=== PATIENT | male | born 1965 | race Caucasian/White ===

== ENCOUNTER 2016-09-24 11:31 | Emergency (ER) | payer OTHER ==
[~2016-09-24] VITALS: Ht 188 cm; Wt 94.3 kg
[~2016-09-24 11:31] MED LIST: IBUP-2213 PO
--- NOTE | 2016-09-24 11:31 | NUR ---
Patient was BIBA at this time.
[2016-09-24 11:40] VITALS: BP 172/120
--- NOTE | 2016-09-24 11:54 | NUR ---
Patient to bed 07 via gurney per EMS.
--- NOTE | 2016-09-24 12:05 | NUR ---
51/M biba from home for evaluation of dizziness for the past two days. Patient reports dizziness x3 months. Patient denies any syncope. Patient is very fatigued, is cooperative but states "My arms just want to go to sleep." Pt c/o weakness. Pt placed on the monitor, pulse oximetry and blood pressure monitoring. 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 Radial and pedal pulses +2 strong and regular. Lungs clear bilaterally. Abd soft, non tender, active bowel sounds x4 quadrants. VSS. hx of HTN but not on medication
--- NOTE | 2016-09-24 12:18 | NUR ---
Dr. Moffett evaluating patient at bedside.
--- NOTE | 2016-09-24 12:34 | NUR ---
Patient going to CT via arron stanley.
--- NOTE | 2016-09-24 12:45 | NUR ---
[facility]
--- NOTE | 2016-09-24 12:48 | NUR ---
Patient ambulated to restroom with steady gait.
[2016-09-24 12:49] LABS: BASOPHILS # (AUTO) 0.2 K/uL (0.00-0.22); BASOPHILS % (AUTO) 2.6 % (0.0-2.0); EOSINOPHILS # (AUTO) 0.1 K/uL (0-0.4); EOSINOPHILS % (AUTO) 2.1 % (0.0-4.0); HEMATOCRIT 50.3 % (36-52); HEMOGLOBIN 16.5 g/dL (12.0-18.0); LYMPHOCYTES # (AUTO) 0.9 K/uL (2.0-11.5); LYMPHOCYTES % (AUTO) 13.2 % (20.5-51.1); MEAN CORPUSCULAR HEMOGLOBIN 28 pg (27-31); MEAN CORPUSCULAR HGB CONC 33 g/dL (33-37); MEAN CORPUSCULAR VOLUME 86 fL (80-94); MONOCYTES # (AUTO) 0.6 K/uL (0.8-1.0); MONOCYTES % (AUTO) 8.7 % (1.7-9.3); NEUTROPHILS # (AUTO) 5.1 K/uL (1.8-7.7); NEUTROPHILS % (AUTO) 73.4 % (42.2-75.2); PLATELET COUNT (AUTO) 137 K/uL (140-450); RED BLOOD CELL COUNT(AUTO) 5.84 MIL/uL (4.20-6.10); RED CELL DISTRIBUTION WIDTH 11.6 % (11.6-13.7); WHITE BLOOD COUNT (AUTO) 6.9 K/uL (4.8-10.8)
[2016-09-24] MEDS ORDERED: MECLIZINE 25 MG TAB PO ONE (12:50)
[2016-09-24] MEDS ORDERED: DIAZEPAM 5 MG TAB PO ONE (12:50)
[2016-09-24] MEDS ORDERED: NACL 0.9% 500 ML IV ONE (12:50)
[2016-09-24 13:10] LABS: INR 1.1 (0.8-1.2); PARTIAL THROMBOPLASTIN TIME 31.9 secs (22-35.6); PROTHROMBIN TIME 10.8 secs (10.8-13.4)
[2016-09-24 13:11] LABS: ALBUMIN 3.7 g/dL (3.4-5.0); ANION GAP 11.4 (8-16); CALCIUM 8.8 mg/dL (8.5-10.1); CARBON DIOXIDE 27.2 mmol/L (21-32); CREATININE 1.2 mg/dL (0.6-1.3); POTASSIUM 3.6 mmol/L (3.5-5.1); TOTAL BILIRUBIN 0.6 mg/dL (0.0-1.0); TOTAL PROTEIN, SERUM 6.6 g/dL (6.4-8.2)
--- NOTE | 2016-09-24 13:19 | NUR ---
Patient appears to be resting comfortably in bed. Vital Signs within normal limits. Respirations even and unlabored. Patient states "I just want to sleep." No distress noted.
--- NOTE | 2016-09-24 14:05 | NUR ---
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 Pt made aware. Pt is resting comfortably at this time. VSS. No signs of distress. Pt states "I just want to sleep."
--- NOTE | 2016-09-24 14:24 | NUR ---
Carlota quintana in ED - 09/24/16 at 1426 by [facility] IV removed, catheter intact and site benign. Applied folded 4x4 gauze and tape to stop bleeding.
--- NOTE | 2016-09-24 15:00 | NUR ---
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
--- NOTE | 2016-09-24 15:01 | NUR ---
IV removed, catheter intact and site benign. Applied folded 4x4 gauze and tape to stop bleeding.
[2016-09-24 15:08] VITALS: BP 134/84
--- NOTE | 2016-09-24 15:09 | NUR ---
Patient discharged with v/s stable. Written and verbal after care instructions given and explained. Patient alert, oriented and verbalized understanding of instructions. Ambulatory with steady gait. All questions addressed prior to discharge. ID band removed. Patient advised to follow up with PMD. Rx of ANTIVERT given. Patient educated on indication of medication including possible reaction and side effects. Opportunity to ask questions provided and answered.
== END 2016-09-24 15:00 | disposition home or self-care (01) ==
LOC: MED 11:32
DX: I10 Essential (primary) hypertension (principal); Z87.442 Personal history of urinary calculi
CPT/HCPCS: 36415; 70450; 71010; 80053; 83880; 84484; 85025; 85610; 85730; 93005; 99285; J7030; J8597; Q0092

== ENCOUNTER 2016-10-21 18:38 | Emergency (ER) | payer OTHER ==
[~2016-10-21] VITALS: Ht 188 cm; Wt 98.9 kg
--- NOTE | 2016-10-21 18:38 | NUR ---
Patient was BIBA and taken to bed 08 via gurney per EMS.
[2016-10-21 18:40] VITALS: BP 163/106
--- NOTE | 2016-10-21 18:45 | NUR ---
PT BIBA FOR EVALUATION OF DIZZINESS SINCE LAST NOC. HX VERTIGO, HTN. DENIES N/V/D; SKIN IS PINK/WARM/DRY; AAOX4 WITH EVEN AND STEADY GAIT; LUNGS CLEAR BL; HR EVEN AND REGULAR; PT DENIES ANY FEVER, CP, SOB, OR COUGH AT THIS TIME; PATIENT STATES PAIN OF 0/10 AT THIS TIME; VSS; PATIENT POSITIONED FOR COMFORT; HOB ELEVATED; BEDRAILS UP X2; BED DOWN. ER MD MADE AWARE OF PT STATUS.
--- NOTE | 2016-10-21 19:27 | NUR ---
REPORT GIVEN TO SAUD VIDAL
[2016-10-21] MEDS ORDERED: METOCLOPRAMIDE 10 MG/2 ML INJ VIAL IVP ONE (19:30)
[2016-10-21] MEDS ORDERED: NACL 0.9% 1,000 ML IV ONE (19:30)
[2016-10-21] MEDS ORDERED: MECLIZINE 25 MG TAB PO ONE (19:45)
[2016-10-21 20:43] VITALS: BP 143/83
--- NOTE | 2016-10-21 20:43 | NUR ---
Patient discharged with v/s stable. Written and verbal after care instructions given and explained. Patient alert, oriented and verbalized understanding of instructions. Ambulatory with steady gait. All questions addressed prior to discharge. ID band removed. Patient advised to follow up with PMD OR RETURN BACK TO ER IF CONDITION WORSENS. Rx of MECLIZINE given. Patient educated on indication of medication including possible reaction and side effects. Opportunity to ask questions provided and answered. [facility] CALLED FOR PT.
--- NOTE | 2016-10-21 21:00 | NUR ---
PT PICKED UP BY STEPHENIE ZENDEJAS.
== END 2016-10-21 20:43 | disposition home or self-care (01) ==
LOC: MED 18:38
DX: R42 Dizziness and giddiness (principal); I10 Essential (primary) hypertension; Z87.442 Personal history of urinary calculi
CPT/HCPCS: 93005; 96361; 96374; 99284; J2765; J7030; J8597

== ENCOUNTER 2018-03-22 09:01 | Emergency (ER) | payer OTHER ==
[~2018-03-22] VITALS: Ht 182.9 cm; Wt 95.7 kg
[2018-03-22 09:23] VITALS: BP 157/90
--- NOTE | 2018-03-22 09:30 | NUR ---
BIB . PATIENT PRESENTS TO ED WITH RIGHT HIP PAIN THAT RADIATES DOWN LEG TO TOES. PT STATES IT GOT WORSE STARTING ON THURSDAY LAST WEEK. DENIES N/V/D; SKIN IS PINK/WARM/DRY; AAOX4 WITH EVEN AND STEADY GAIT; LUNGS CLEAR BL; HR EVEN AND REGULAR; PT DENIES ANY FEVER, CP, SOB, OR COUGH AT THIS TIME; PATIENT STATES PAIN OF 10/10 AT THIS TIME; VSS; PATIENT POSITIONED FOR COMFORT; HOB ELEVATED; BEDRAILS UP X2; BED DOWN. ER MD MADE AWARE OF PT STATUS.
--- NOTE | 2018-03-22 10:00 | NUR ---
PATIENT EDUCATED ON PROPER USE OF CRUTCHES.
[2018-03-22 10:10] VITALS: BP 135/75
--- NOTE | 2018-03-22 10:10 | NUR ---
Patient discharged with v/s stable. Written and verbal after care instructions given and explained. Patient alert, oriented and verbalized understanding of instructions. Ambulatory with CRUTCHES. All questions addressed prior to discharge. ID band removed. Patient advised to follow up with PMD. Rx TRAMADOL of given. Patient educated on indication of medication including possible reaction and side effects. Opportunity to ask questions provided and answered.
== END 2018-03-22 10:10 | disposition home or self-care (01) ==
LOC: MED 09:01
DX: M54.31 Sciatica, right side (principal); I10 Essential (primary) hypertension; Z79.1 Long term (current) use of non-steroidal anti-inflammatories (NSAID)
CPT/HCPCS: 99283

== ENCOUNTER 2018-06-27 20:49 | Emergency (ER) | payer OTHER ==
[~2018-06-27] VITALS: Ht 188 cm; Wt 95.7 kg
[2018-06-27 20:57] VITALS: BP 153/107
--- NOTE | 2018-06-27 21:01 | NUR ---
PT AMBULATED TO BED 9 WITH VSS.
--- NOTE | 2018-06-27 21:14 | NUR ---
PT BIB SELF C/O R FINGER PAIN X1 WEEK AND R FLANK PAIN X3 DAYS. PT REPORTS STICKING SECOND FINGER ON R HAND WHILE CHANGING A TIRE LAST WEEK AND FIRST NOTICED SWELLING AND DECREASED ROM THURSDAY WITH NUMBING PAIN AT 10/10. EDEMA AND EYTHEMA PRESENT ON R SECOND FINGER. PT ALSO REPORTS STABING R FLANK PAIN WITH BURNING URINATION AND HESITANCY. PT DENIES N/V AND FEVER. PT HAS HISTORY OF KIDNEY STONES. ER MD TO SEE PT. SIDE RAIL UP X1, HOB ELEVATED, BED IN LOWEST POSITION. WILL CONTINUE TO MONITOR. MEDHX: KIDNEY STONES, HTN RX: NONE
[2018-06-27] MEDS ORDERED: IBUPROFEN 800 MG TAB PO ONE (21:20)
--- NOTE | 2018-06-27 21:40 | NUR ---
PT AT CT AT THIS TIME.
--- NOTE | 2018-06-27 21:52 | NUR ---
PT RETURNED FROM CT AT THIS TIME.
[2018-06-27 22:18] VITALS: BP 148/98
--- NOTE | 2018-06-27 22:18 | NUR ---
Patient discharged with v/s stable. Written and verbal after care instructions given and explained. Patient alert, oriented and verbalized understanding of instructions. Ambulatory with steady gait. All questions addressed prior to discharge. ID band removed. Patient advised to follow up with PMD. Rx of flomax, ibuprofen, and given. Patient educated on indication of medication including keflex reaction and side effects. Opportunity to ask questions provided and answered.
[2018-06-27 22:24] LABS: APPEARANCE,URINE CLEAR (CLEAR); BILIRUBIN,URINE NEGATIVE (NEGATIVE); BLOOD, URINE 1+ (NEGATIVE); COLOR,URINE YELLOW (YELLOW); LEUKOCYTE ESTERASE ,URINE NEGATIVE (NEGATIVE); NITRITE, URINE NEGATIVE (NEGATIVE); UGLUCOSE NEGATIVE (NEGATIVE)
[2018-06-27 22:39] LABS: HYALINE CASTS, URINE 0-10 /LPF (None Seen); RBC,URINE 3-10 (FEW) /HPF (0-5); WBC,URINE 0-5 (RARE) /HPF (0-5)
== END 2018-06-27 22:18 | disposition home or self-care (01) ==
LOC: MED 20:49
DX: L03.011 Cellulitis of right finger (principal); N20.0 Calculus of kidney; I10 Essential (primary) hypertension; Z87.442 Personal history of urinary calculi; Z79.899 Other long term (current) drug therapy
CPT/HCPCS: 81001; 99284

== ENCOUNTER 2018-07-21 21:31 | Inpatient (IN) | payer OTHER ==
[~2018-07-21] VITALS: Ht 188 cm; Wt 99.3 kg
[2018-07-21 21:34] VITALS: BP 166/102
[2018-07-21 22:01] LABS: BASOPHILS # (AUTO) 0.1 K/uL (0.00-0.22); BASOPHILS % (AUTO) 0.8 % (0.0-2.0); EOSINOPHILS # (AUTO) 0.1 K/uL (0-0.4); EOSINOPHILS % (AUTO) 1.2 % (0.0-4.0); HEMOGLOBIN 16.8 g/dL (12.0-18.0); LYMPHOCYTES # (AUTO) 1.6 K/uL (2.0-11.5); LYMPHOCYTES % (AUTO) 19.3 % (20.5-51.1); MEAN CORPUSCULAR HEMOGLOBIN 28 pg (27-31); MEAN CORPUSCULAR HGB CONC 33 g/dL (33-37); MEAN CORPUSCULAR VOLUME 85.5 fL (80-94); MONOCYTES # (AUTO) 0.7 K/uL (0.8-1.0); MONOCYTES % (AUTO) 8.1 % (1.7-9.3); NEUTROPHILS # (AUTO) 5.8 K/uL (1.8-7.7); NEUTROPHILS % (AUTO) 70.6 % (42.2-75.2); PLATELET COUNT (AUTO) 133 K/uL (140-450); RED BLOOD CELL COUNT(AUTO) 5.97 MIL/uL (4.20-6.10); RED CELL DISTRIBUTION WIDTH 13.1 % (11.6-13.7); WHITE BLOOD COUNT (AUTO) 8.2 K/uL (4.8-10.8)
[2018-07-21 22:06] LABS: BILIRUBIN,URINE NEGATIVE (NEGATIVE); BLOOD, URINE NEGATIVE (NEGATIVE); COLOR,URINE YELLOW (YELLOW); LEUKOCYTE ESTERASE ,URINE NEGATIVE (NEGATIVE); NITRITE, URINE NEGATIVE (NEGATIVE); PH,URINE 6.5 (5.0-9.0); UGLUCOSE NEGATIVE (NEGATIVE)
[2018-07-21 22:11] LABS: APPEARANCE,URINE CLEAR (CLEAR)
[2018-07-21 22:12] LABS: ANION GAP 9.9 (8-16); CARBON DIOXIDE 29.6 mmol/L (21-32); CREATININE 1.6 mg/dL (0.7-1.3); POTASSIUM 3.5 mmol/L (3.5-5.1)
[2018-07-21 22:17] LABS: ALBUMIN 4.1 g/dL (3.4-5.0); TOTAL BILIRUBIN 0.5 mg/dL (0.0-1.0)
--- NOTE | 2018-07-21 22:39 | NUR ---
PT PRESENTS TO ED WITH LEFT FLANK PAIN X1 DAY. NON-RADIATING, THROBBING, SEVERE ACHE. 01/01. HX KIDNEY STONES. A&OX4. NO ABD TENDERNESS. VSS. POSITIONED IN BED FOR COMFORT. ER MD AWARE. CONTINUE TO MONITOR.
--- NOTE | 2018-07-21 22:39 | NUR ---
PT TAKEN TO BED 7
--- NOTE | 2018-07-21 22:46 | NUR ---
Dr. Bhakta evaluating patient at bedside.
[2018-07-21] MEDS ORDERED: NACL 0.9% 1,000 ML IV ONE (22:50)
[2018-07-21] MEDS ORDERED: MORPHINE SULFATE 4 MG/ML SYR IVP ONE ×2 (22:50→23:55)
[2018-07-22] MEDS ORDERED: fentaNYL 0.05 MG/ML VIAL IVP ONE (00:55)
[2018-07-22] MEDS ORDERED: TAMSULOSIN 0.4 MG CAP ONE (00:59)
[2018-07-22] MEDS ORDERED: ACETAMINOPHEN 325 MG TAB PO PRN (01:45)
[2018-07-22] MEDS ORDERED: ONDANSETRON 4 MG/2 ML VIAL IVP PRN (01:45)
[2018-07-22] MEDS ORDERED: HYDROcodone/APAP 5/325 MG 1 TAB TAB PO PRN (01:45)
[2018-07-22 02:05] VITALS: BP 157/99
--- NOTE | 2018-07-22 02:05 | NUR ---
RECEIVED PT FROM ER NURSE RENE-SAUD AT BEDSIDE. PT ARRIVED VIA WHEELCHAIR AND WAS ABLE TO AMBULATE WITHOUT ASSISTANCE TO THE BED. AOX4, ON ROOM AIR WITH LEFT AC #20G. VITAL SIGNS TAKEN AND MRSA SWAB COLLECTED. DISCUSSED PLAN OF CARE AND PT VERBALIZED UNDERSTANDING. NO S/S OF RESPIRATORY DISTRESS OR DISCOMFORT NOTED AT THIS TIME. ORIENTED TO ROOM, CALL LIGHT AND BED. BED IN LOWEST POSITION, BED BREAKS ON, BOTH SIDE RAILS UP. BEDSIDE TABLE AND CALL LIGHT ARE WITHIN REACH. WILL CONTINUE TO MONITOR.
--- NOTE | 2018-07-22 02:10 | NUR ---
REPORT GIVEN AND CARE TRANSFERED TO TEODORA RN ROOM 124A. TRANSFERED VIA WHEEL CHAIR [facility] VSS.
[2018-07-22] MEDS: NACL 0.9% 1,000 ML IV SCH ×3 (02:38→21:47)
[2018-07-22] MEDS: MORPHINE SULFATE 4 MG/ML SYR IVP PRN ×4 (04:13→18:21)
--- NOTE | 2018-07-22 04:13 | NUR ---
PT C/O PAIN 10/10 LEFT LOWER FLANK PAIN. MORPHINE GIVEN AND TOLERATED WELL. NO S/S OF RESPIRATORY DISTRESS OR DISCOMFORT NOTED AT THIS TIME. WILL CONTINUE TO MONITOR.
--- NOTE | 2018-07-22 06:00 | NUR ---
PT CONTINUES TO SLEEP IN BED. NO S/S OF RESPIRATORY DISTRESS OR DISCOMFORT NOTED AT THIS TIME. WILL CONTINUE TO MONITOR.
--- NOTE | 2018-07-22 07:14 | NUR ---
REPORT GIVEN TO DAY SHIFT NURSE INDIO-RN FOR CONTINUITY OF CARE.
--- NOTE | 2018-07-22 07:15 | NUR ---
RECEIVED REPORT FROM BUSINESS SUPERVISOR NURSE. PATIENT WAS THROWING UP AT THE MOMENT. PT WAS ALSO COMPLAINING OF PAIN. ONCE PT WAS FINISHED W THROWING UP. GAVE PT PAIN MEDICATION. PT WAS LAYING IN BED. ALL SAFETY MEASURES WERE IN PLACE. TIPTON IN REACH.
--- NOTE | 2018-07-22 07:54 | NUR ---
PATIENT HAS BEEN SCREENED AND CATEGORIZED MODERATE NUTRITION RISK. PATIENT WILL BE SEEN WITHIN 3-5 DAYS OF ADMISSION. 07/24/18[address]
[2018-07-22 08:00] VITALS: BP 159/93
--- NOTE | 2018-07-22 08:08 | NUR ---
Morphine 4mg IVP administered to pt. No morphine wasted from Pyxis. Pharmacist notified.
[2018-07-22] MEDS ORDERED: TAMSULOSIN 0.4 MG CAP PO SCH (08:30)
[2018-07-22] MEDS: TAMSULOSIN 0.4 MG CAP PO SCH (08:49)
[2018-07-22] MEDS ORDERED: ENOXAPARIN 40 MG/0.4 ML SYR SUBQ SCH (09:00)
--- NOTE | 2018-07-22 10:55 | NUR ---
CM NOTE I ATTEMPTED TO MAKE AN OUTPATIENT FOLLOW UP APPOINTMENT FOR THE PATIENT WITH PATIENT'S PCP DR. [facility]. PER NILAM BECERRA OF [facility] PH# [phone], THEY ARE A WALK IN CLIN[facility] AND THEY DO NOT DO APPOINTMENTS. PER NILAM BECERRA, THE CLINIC HOURS ARE: MONDAYS-FRIDAYS 8:00 AM-8:00 PM, SATURDAYS 8:30 AM-5:00 PM, SUNDAYS 9:00 AM-4:00 PM AND THE ADDRESS TO THE CLINIC IS [address] [place] [address]. I EXPLAINED TO THE PATIENT THAT HIS PCP'S CLINIC DOESN'T DO APPOINTMENTS BUT I EMPHASIZED TO HIM THE IMPORTANCE OF FOLLOWING UP WITH HIS PCP POST DISCHARGE AND I GAVE HIM A COPY OF HIS PCP'S CLINIC HOURS AND ADDRESS.
--- NOTE | 2018-07-22 11:00 | NUR ---
Urinal with 300 ml urine. Urine strained, urinal cleaned & place within pt's reach. Pt denies any pain at this time. Left ac IV intact with ongoing NS @ 100ml/hr. Call light within reach.
--- NOTE | 2018-07-22 14:28 | NUR ---
CM NOTE RECEIVED VM FROM INDIO VILLAVICENCIO THAT DR. Paras MARCELINO IS REQUESTING FOR AN AUTHORIZATION FROM PATIENT'S [facility]IGNED [facility] FOR HIM TO SEE THE PATIENT AT THE HOSPITAL. PER DR. MARCELINO, THE CODES FOR HOSPITAL CONSULT [id number] AND FOR HOSPITAL VISIT [phone]. I INFORMED ALPHA CARE CM LEWIS OF DR. MARCELINO'S REQUEST AND PER SANFORD SAUCEDO OF [facility]# [phone] EXT [phone], FOR DR. MARCELINO THE AUTH# [id number]. INDIO VILLAVICENCIO AWARE.
--- NOTE | 2018-07-22 14:30 | NUR ---
Received call from [facility] medical case manager re: Dr. Gonzalez's request for authorization from [employer]. Left voicemail to Dr. Gonzalez's office.
[2018-07-22 16:00] VITALS: BP 149/95
--- NOTE | 2018-07-22 16:00 | NUR ---
Call light not working in pt's room. biology specimen technician notified to contact maintenance. Call zurita provided at bedside. Pt able to demonstrate proper use of call zurita.
--- NOTE | 2018-07-22 19:27 | NUR ---
Report given to pm nurse Neema.
--- NOTE | 2018-07-22 19:28 | NUR ---
RECEIVED BEDSIDE REPORT FROM DAY SHIFT NURSE INDIO RN, PT STABLE, NO DISTRESS NOTED, IV TO LAC 20G PATENT,INTACT, INFUSING NS @100ML/HR, INFUSING WELL, PT ON ROOM AIR, NO SOB NOTED, PT SLEEPING, NO C/O PAIN AT THIS MOMENT, INITIAL ASSESSMENT DONE, ALL SAFETY PRECAUTION MET, CALL LIGHT WITHIN REACH, WILL CONTINUE TO MONITOR.
--- NOTE | 2018-07-22 20:49 | NUR ---
DR MARCELINO AT BEDSIDE, TALKING TO PT.
[2018-07-22] MEDS ORDERED: KETOROLAC 30 MG/ML VIAL IVP PRN (20:50)
[2018-07-22] MEDS: oxyCODONE/APAP 5/325 MG 1 TAB TAB PO PRN (21:14)
--- NOTE | 2018-07-22 21:14 | NUR ---
PT STATED HAVING PAIN, PER DR. HENSON OK TO GIVE PERCOCET FOR PT. MEDICATION PER DRArnold ORDER ADMINISTERED, PT TOLERATED WELL, NO DISTRESS NOTED, CALL LIGHT WITHIN REACH, WILL CONTINUE TO MONITOR.
--- NOTE | 2018-07-22 23:55 | NUR ---
CHECKED ON PT, PT SLEEPING, V/S TAKEN, WNL, PT DENIES ANY PAIN AT THIS MOMENT, CALL LIGHT WITHIN REACH, WILL CONTINUE TO MONITOR.
[2018-07-23] VITALS: BP 125/72
[2018-07-23] MEDS: NACL 0.9% 1,000 ML IV SCH ×3 (02:36→17:25)
--- NOTE | 2018-07-23 04:04 | NUR ---
PT RESTING ON BED, NO DISTRESS NOTED, PT DENIES ANY PAIN, CALL LIGHT WITHIN REACH, WILL CONTINUE TO MONITOR.
[2018-07-23 06:19] LABS: BASOPHILS % (AUTO) 0.5 % (0.0-2.0); EOSINOPHILS # (AUTO) 0.1 K/uL (0-0.4); EOSINOPHILS % (AUTO) 1.5 % (0.0-4.0); HEMATOCRIT 45.8 % (36-52); LYMPHOCYTES # (AUTO) 1.1 K/uL (2.0-11.5); LYMPHOCYTES % (AUTO) 15.2 % (20.5-51.1); MEAN CORPUSCULAR HEMOGLOBIN 28 pg (27-31); MEAN CORPUSCULAR HGB CONC 33 g/dL (33-37); MEAN CORPUSCULAR VOLUME 86.4 fL (80-94); MONOCYTES # (AUTO) 0.7 K/uL (0.8-1.0); MONOCYTES % (AUTO) 9.9 % (1.7-9.3); NEUTROPHILS # (AUTO) 5.1 K/uL (1.8-7.7); NEUTROPHILS % (AUTO) 72.9 % (42.2-75.2); PLATELET COUNT (AUTO) 122 K/uL (140-450); RED CELL DISTRIBUTION WIDTH 12.9 % (11.6-13.7)
[2018-07-23 06:45] LABS: ANION GAP 7.2 (8-16); CARBON DIOXIDE 30.5 mmol/L (21-32); CREATININE 1.3 mg/dL (0.7-1.3); POTASSIUM 3.7 mmol/L (3.5-5.1)
--- NOTE | 2018-07-23 07:19 | NUR ---
ENDORSED PT TO DAY SHIFT NURSE INDIO RN, PT STABLE, NO DISTRESS NOTED, CALL LIGHT WITHIN REACH.
--- NOTE | 2018-07-23 07:20 | NUR ---
Received report from pm nurse Neema. Pt awake, verbally responsive, no signs of distress, respirations even & nonlabored. Call light within reach.
--- NOTE | 2018-07-23 07:21 | NUR ---
ENDORSED PT TO DAY SHIFT NURSE NICK VILLAVICENCIO, PT STABLE, NO DISTRESS NOTED, CALL LIGHT WITHIN REACH. Addendum: 07/23/18 at 0721 by Neema Valadez RN WRONG PT
[2018-07-23] MEDS: TAMSULOSIN 0.4 MG CAP PO SCH (07:52)
[2018-07-23] MEDS: oxyCODONE/APAP 5/325 MG 1 TAB TAB PO PRN ×2 (07:52→13:11)
[2018-07-23 08:00] VITALS: BP 167/111
--- NOTE | 2018-07-23 08:20 | NUR ---
Pt with x1 episode of emesis, about 100ml with chunks of food. Per pt, he felt a little nauseated after breakfast, but had instant relief after emesis. No c/o discomfort at this time. Emesis bag provided within reach. Instructed to keep HOB elevated for comfort. Pt agree with plan of care. Call zurita within reach & encouraged to call staff for assistance prn.
[2018-07-23 09:00] VITALS: BP 153/89
--- NOTE | 2018-07-23 10:55 | NUR ---
Received call from Dr. Gonzalez. Per physician, he will come to see pt in hospital today. Also requests to have Dr Herndon to prescribe Percocet upon discharge. Will inform Dr. Herndon upon visit.
--- NOTE | 2018-07-23 11:43 | NUR ---
Pt requested to shower. Assisted to shower room. Pt able to amb with steady gait, no c/o discomfort. Able to return demonstrate proper use of pull string call light.
--- NOTE | 2018-07-23 12:15 | NUR ---
Came back from shower. No signs of distress. Resumed NS @ 150 ml/hr to Lt ac IV. Call zurita within reach.
[2018-07-23] MEDS ORDERED: ACET-9494 PO (15:45)
[2018-07-23] MEDS ORDERED: TAMS0.4C96 PO (15:45)
--- NOTE | 2018-07-23 17:00 | NUR ---
Written & verbal discharge instructions provided to pt. Pt verbalize understanding & agree with discharge plans. Radiology CD & Rx sheet given to pt. Left ac IV discontinued. Spoke to Nisa () on the phone & notified of dc order. Per Nisa, she will come in a couple hours to transport pt home. Pt aware & verbalized understanding.
[2018-07-23] MEDS ORDERED: ONDANSETRON 4 MG TAB PO PRN (18:50)
--- NOTE | 2018-07-23 18:51 | NUR ---
Pt c/o nausea, no abd discomfort. Ice chips provided for comfort. Obtained order from Dr. Herndon for Ondansetron po. Med administered as ordered. Emesis bag provided.
--- NOTE | 2018-07-23 19:00 | NUR ---
Pt with episode of emesis about 100ml. Pt states he feels relieved from nausea after vomiting. No abd distention. Pt states he had large BM yesterday & is passing gas. Encouraged to adhere to bland diet & advance as efraín. Pt verbalized understanding & agree to continue bland diet at home. Nisa at bedside to transport pt home.
--- NOTE | 2018-07-23 19:05 | NUR ---
Pt discharged at this time to home. Amb off unit with steady gait, accompanied by Nisa. No c/o discomfort. No signs of distress. Name band removed.
== END 2018-07-23 19:05 | disposition home or self-care (01) | DRG 465 ==
LOC: MED 21:31 → MTU 07-22 01:45
PROVIDERS: ADMIT Hospitalist; ATTEND Hospitalist
DX: N20.2 Calculus of kidney with calculus of ureter (principal); N17.9 Acute kidney failure, unspecified; D69.6 Thrombocytopenia, unspecified; E78.5 Hyperlipidemia, unspecified; I10 Essential (primary) hypertension; N13.9 Obstructive and reflux uropathy, unspecified
CPT/HCPCS: 36415; 74018; 80048; 80053; 81003; 83690; 85025; 87081; 96361; 96374; 96375; 96376; 99285; J1885; J2270; J2405; J3010; J7030; Q0092; Q0162

== ENCOUNTER 2021-11-06 10:45 | Emergency (ER) | payer OTHER ==
[~2021-11-06] VITALS: Ht 188 cm; Wt 99.8 kg
[~2021-11-06 10:45] MED LIST changes: +OXYC-304 PO; +TAMS0.4C96 PO
[2021-11-06 11:02] VITALS: BP 148/93
--- NOTE | 2021-11-06 11:14 | NUR ---
PT AMB TO BED 6.
--- NOTE | 2021-11-06 11:33 | NUR ---
56 Y/O M BIB SELF C/O LOWER BACK PAIN 09/01 SINCE THURSDAY. PT WAS URGENT CARE ON THURSDAY FOR CHILLS AND FEVER OF 99. PATIENT WAS GIVEN TYLENOL AND CIPROFLOXACIN. PT STATES " WHEN I TAKE MEDS I THROW UP" SO HE STOP TAKING THE MEDS. PT ALSO C/O HEAD AND EYE BURNING PAIN. NKA OR PMH
--- NOTE | 2021-11-06 11:58 | NUR ---
CHACHA RODRIGUEZ AT BEDSIDE.
[2021-11-06] MEDS: NACL 0.9% 1,000 ML IV ONE (12:18)
--- NOTE | 2021-11-06 12:18 | NUR ---
URINE COLLECTED AND WALKED TO THE LAB.
[2021-11-06] MEDS: KETOROLAC 15 MG/ML VIAL IVP ONE (12:30)
--- NOTE | 2021-11-06 12:39 | NUR ---
X-RAY AT BEDSIDE.
[2021-11-06 12:48] LABS: BASOPHILS % (AUTO) 0.6 % (0.0-2.0); EOSINOPHILS % (AUTO) 0.1 % (0.0-4.0); HEMATOCRIT 48.3 % (36-52); HEMOGLOBIN 16.2 g/dL (12.0-18.0); LYMPHOCYTES # (AUTO) 0.5 K/uL (2.0-11.5); LYMPHOCYTES % (AUTO) 16.3 % (20.5-51.1); MEAN CORPUSCULAR HEMOGLOBIN 29 pg (27-31); MEAN CORPUSCULAR HGB CONC 34 g/dL (33-37); MEAN CORPUSCULAR VOLUME 85.1 fL (80-94); MONOCYTES # (AUTO) 0.3 K/uL (0.8-1.0); MONOCYTES % (AUTO) 9.4 % (1.7-9.3); NEUTROPHILS # (AUTO) 2.3 K/uL (1.8-7.7); NEUTROPHILS % (AUTO) 73.6 % (42.2-75.2); PLATELET COUNT (AUTO) 71 K/uL (140-450); RED BLOOD CELL COUNT(AUTO) 5.68 MIL/uL (4.20-6.10); RED CELL DISTRIBUTION WIDTH 12.8 % (11.6-13.7); WHITE BLOOD COUNT (AUTO) 3.1 K/uL (4.8-10.8)
[2021-11-06 13:04] LABS: ALBUMIN 3.3 g/dL (3.4-5.0); ANION GAP 8.1 (8-16); CARBON DIOXIDE 31.3 mmol/L (21-32); CREATININE 1.2 mg/dL (0.6-1.3); POTASSIUM 4.4 mmol/L (3.5-5.1); TOTAL BILIRUBIN 0.8 mg/dL (0.0-1.0)
[2021-11-06 13:34] LABS: BILIRUBIN,URINE NEGATIVE (NEGATIVE); BLOOD, URINE TRACE-I (NEGATIVE); LEUKOCYTE ESTERASE ,URINE NEGATIVE (NEGATIVE); NITRITE, URINE NEGATIVE (NEGATIVE); UGLUCOSE NEGATIVE (NEGATIVE)
[2021-11-06 13:50] LABS: APPEARANCE,URINE CLEAR (CLEAR); COLOR,URINE YELLOW (YELLOW)
[2021-11-06 13:51] LABS: RBC,URINE 0-5 /HPF (0-5); WBC,URINE NONE SEEN /HPF (0-5)
[2021-11-06] MEDS ORDERED: PROM118S5 PO (14:13)
[2021-11-06] MEDS ORDERED: ONDA-188 PO (14:13)
[2021-11-06] MEDS ORDERED: FAMO-90 PO (14:13)
[2021-11-06] MEDS ORDERED: POLY30DR2 OP (14:13)
[2021-11-06 14:26] VITALS: BP 150/81
--- NOTE | 2021-11-06 14:27 | NUR ---
Patient discharged with v/s stable. Written and verbal after care instructions given and explained. Patient alert, oriented and verbalized understanding of instructions. Ambulatory with steady gait. All questions addressed prior to discharge. ID band removed. Patient advised to follow up with PMD. Rx of FAMOTIDINE, ONDANSETRON, POLYETHYLENE GLYCOL 400, PROMETHAZINE/DEXTROMETHORPHAN given. Opportunity to ask questions provided and answered.
== END 2021-11-06 14:27 | disposition home or self-care (01) ==
LOC: MED 10:45
DX: B34.9 Viral infection, unspecified (principal); Z20.822 Contact with and (suspected) exposure to COVID-19; R11.2 Nausea with vomiting, unspecified; I10 Essential (primary) hypertension; Z87.448 Personal history of other diseases of urinary system; Z79.899 Other long term (current) drug therapy; Z79.891 Long term (current) use of opiate analgesic; Z79.1 Long term (current) use of non-steroidal anti-inflammatories (NSAID)
CPT/HCPCS: 36415; 71045; 80053; 81001; 83690; 85025; 87426; 87804; 96361; 96374; 99284; J1885; J7030

== ENCOUNTER 2022-07-28 13:20 | Emergency (ER) | payer OTHER ==
[~2022-07-28] VITALS: Ht 188 cm; Wt 93.0 kg
[~2022-07-28 13:20] MED LIST changes: +FAMO-90 PO; +ONDA-188 PO; +POLY30DR2 OP; +PROM118S5 PO
[2022-07-28 13:26] VITALS: BP 139/102
[2022-07-28] MEDS ORDERED: KETOROLAC 30 MG/ML VIAL IM ONE (14:15)
--- NOTE | 2022-07-28 14:30 | NUR ---
57/M WALKED IN C/O RIGHT ANKLE PAIN X 1 WK ACCOMPANIED BY SWELLING. PT REPORTS BEING SEEN AT [facility] AND WAS DC WITH MED PX WITH NO RELIEF. PMH: HTN NKA MED: BP MEDS
[2022-07-28] MEDS ORDERED: KETOROLAC 30 MG/ML VIAL ONE (15:18)
[2022-07-28 15:30] VITALS: BP 134/89
[2022-07-28] MEDS ORDERED: ACET-10509 PO (15:31)
[2022-07-28] MEDS ORDERED: NAPR-1704 PO (15:31)
== END 2022-07-28 16:20 | disposition home or self-care (01) ==
LOC: MED 13:20
DX: M19.071 Primary osteoarthritis, right ankle and foot (principal); I10 Essential (primary) hypertension; N20.0 Calculus of kidney; Z79.899 Other long term (current) drug therapy
CPT/HCPCS: 73610; 73630; 96372; 99284; J1885

== ENCOUNTER 2022-08-28 23:54 | Emergency (ER) | payer OTHER ==
[~2022-08-28] VITALS: Ht 188 cm; Wt 93.0 kg
[~2022-08-28 23:54] MED LIST changes: +ACET-10509 PO; +NAPR-1704 PO
[2022-08-29 00:03] VITALS: BP 158/98
--- NOTE | 2022-08-29 01:27 | NUR ---
PATIENT LEFT WITHOUT BEING SEEN BY DR. Garcia. NO FURTHER CARE PROVIDED FOR PATIENT.
== END 2022-08-29 01:27 | disposition home or self-care (01) ==
LOC: MED 23:54
DX: M79.671 Pain in right foot (principal); Z53.21 Procedure and treatment not carried out due to patient leaving prior to being seen by health care provider
CPT/HCPCS: 99281

== ENCOUNTER 2023-01-18 07:58 | Emergency (ER) | payer OTHER ==
[~2023-01-18] VITALS: Ht 175.3 cm; Wt 90.7 kg
[2023-01-18 08:00] VITALS: BP 155/79; PULSE 75; RESP 17; TEMP 97.4; O2SAT 97
[2023-01-18] MEDS ORDERED: KETOROLAC 60 MG/2 ML VIAL IM ONE (08:05)
[2023-01-18 09:55] VITALS: BP 153/94; PULSE 83; RESP 16; TEMP 98.1; O2SAT 99
== END 2023-01-18 09:56 | disposition home or self-care (01) ==
LOC: MED 07:58
DX: M54.50 Low back pain, unspecified (principal); R25.2 Cramp and spasm; I10 Essential (primary) hypertension; Z87.448 Personal history of other diseases of urinary system; Z79.899 Other long term (current) drug therapy; Z79.1 Long term (current) use of non-steroidal anti-inflammatories (NSAID)
CPT/HCPCS: 81002; 96372; 99283; J1885

== ENCOUNTER 2023-05-09 10:05 | Emergency (ER) | payer OTHER ==
[~2023-05-09] VITALS: Ht 188 cm; Wt 100.2 kg
[2023-05-09 10:11] VITALS: BP 132/84; PULSE 94; RESP 18; TEMP 98.5; O2SAT 96
[2023-05-09] MEDS ORDERED: KETOROLAC 30 MG/ML VIAL IM ONE (10:55)
[2023-05-09] MEDS ORDERED: methylPREDNISolone SS 125 MG/2 ML VIAL IM ONE (10:55)
[2023-05-09] MEDS ORDERED: NAPR-1704 PO (12:02)
[2023-05-09] MEDS ORDERED: FAMO-90 PO (12:02)
[2023-05-09] MEDS ORDERED: DICL100G32 TP (12:02)
[2023-05-09] MEDS ORDERED: TRAM50TA3 PO (12:02)
[2023-05-09] MEDS ORDERED: AMOX1TAB8 PO (12:06)
[2023-05-09 12:50] VITALS: BP 132/84; PULSE 94; RESP 18; TEMP 98.5; O2SAT 96
== END 2023-05-09 12:51 | disposition home or self-care (01) ==
LOC: MED 10:05
DX: M47.896 Other spondylosis, lumbar region (principal); J98.11 Atelectasis; M54.30 Sciatica, unspecified side; I12.9 Hypertensive chronic kidney disease with stage 1 through stage 4 chronic kidney disease, or unspecified chronic kidney disease; N18.9 Chronic kidney disease, unspecified
CPT/HCPCS: 71045; 72100; 72170; 96372; 99284; J1885; J2930

== ENCOUNTER 2023-09-15 18:44 | Emergency (ER) | payer OTHER ==
[~2023-09-15] VITALS: Ht 188 cm; Wt 101.6 kg
[~2023-09-15 18:44] MED LIST changes: +AMOX1TAB8 PO; +DICL100G32 TP; +TRAM50TA3 PO
[2023-09-15 18:46] VITALS: BP 108/57; PULSE 82; RESP 18; TEMP 97.5; O2SAT 97
[2023-09-15 19:00] VITALS: BP 108/57; PULSE 82; RESP 18; TEMP 97.5
[2023-09-15 20:00] VITALS: O2SAT 97
[2023-09-15] MEDS ORDERED: AMOX-1230 PO (20:08)
== END 2023-09-15 20:30 | disposition home or self-care (01) ==
LOC: MED 18:44
DX: S09.22XA Traumatic rupture of left ear drum, initial encounter (principal); I10 Essential (primary) hypertension; N28.9 Disorder of kidney and ureter, unspecified; Z79.899 Other long term (current) drug therapy; X58.XXXA Exposure to other specified factors, initial encounter; Y93.89 Activity, other specified; Y92.89 Other specified places as the place of occurrence of the external cause; Y99.8 Other external cause status
CPT/HCPCS: 90471; 90715; 99283

== ENCOUNTER 2023-11-27 10:25 | Emergency (ER) | payer OTHER ==
[~2023-11-27] VITALS: Ht 188 cm; Wt 100.7 kg
[~2023-11-27 10:25] MED LIST changes: +AMOX-1230 PO
[2023-11-27 10:26] VITALS: BP 154/120; PULSE 74; RESP 17; TEMP 98.5; O2SAT 98
[2023-11-27 11:05] LABS: BASOPHILS % (AUTO) 0.8 % (0.0-2.0); EOSINOPHILS % (AUTO) 0.8 % (0.0-4.0); HEMATOCRIT 50.7 % (36-52); LYMPHOCYTES # (AUTO) 1.4 K/uL (2.0-11.5); LYMPHOCYTES % (AUTO) 24.5 % (20.5-51.1); MEAN CORPUSCULAR HEMOGLOBIN 29 pg (27-31); MEAN CORPUSCULAR HGB CONC 34 g/dL (33-37); MEAN CORPUSCULAR VOLUME 85.4 fL (80-94); MONOCYTES # (AUTO) 0.4 K/uL (0.8-1.0); MONOCYTES % (AUTO) 7.1 % (1.7-9.3); NEUTROPHILS # (AUTO) 3.8 K/uL (1.8-7.7); NEUTROPHILS % (AUTO) 66.8 % (42.2-75.2); PLATELET COUNT (AUTO) 130 K/uL (140-450); RED BLOOD CELL COUNT(AUTO) 5.94 MIL/uL (4.20-6.10); RED CELL DISTRIBUTION WIDTH 13.1 % (11.6-13.7); WHITE BLOOD COUNT (AUTO) 5.7 K/uL (4.8-10.8)
[2023-11-27 11:22] LABS: ANION GAP 13.7 (8-16); CALCIUM 8.3 mg/dL (8.5-10.1); CARBON DIOXIDE 26.1 mmol/L (21-32); CREATININE 1.2 mg/dL (0.6-1.3); POTASSIUM 3.8 mmol/L (3.5-5.1)
[2023-11-27] MEDS ORDERED: DICL20GE TP (12:19)
[2023-11-27] MEDS ORDERED: IBUP-2213 PO (12:19)
[2023-11-27] MEDS ORDERED: BENZ200C4 PO (12:19)
[2023-11-27 12:41] VITALS: BP 155/82; PULSE 66; RESP 16; TEMP 98.5; O2SAT 96
== END 2023-11-27 12:41 | disposition home or self-care (01) ==
LOC: MED 10:25
DX: J06.9 Acute upper respiratory infection, unspecified (principal); B97.89 Other viral agents as the cause of diseases classified elsewhere; I10 Essential (primary) hypertension; Z87.442 Personal history of urinary calculi; Z79.1 Long term (current) use of non-steroidal anti-inflammatories (NSAID); Z79.2 Long term (current) use of antibiotics; Z79.899 Other long term (current) drug therapy
CPT/HCPCS: 36415; 71045; 80048; 83880; 84484; 85025; 93005; 99285

== ENCOUNTER 2024-01-08 11:47 | Emergency (ER) | payer OTHER ==
[~2024-01-08] VITALS: Ht 188 cm; Wt 103.6 kg
[~2024-01-08 11:47] MED LIST changes: +BENZ200C4 PO; +DICL20GE TP
[2024-01-08 11:55] VITALS: BP 162/104; PULSE 91; RESP 16; TEMP 97.3; O2SAT 96
[2024-01-08 13:13] VITALS: BP 158/103; PULSE 77; RESP 20; O2SAT 94
[2024-01-08] MEDS ORDERED: OMEP40EC23 PO (13:29)
[2024-01-08] MEDS ORDERED: LOSA25TA43 PO (13:29)
[2024-01-08] MEDS ORDERED: AMLO5TAB PO (13:29)
[2024-01-08] MEDS ORDERED: DICYCLOMINE HCL LIQUID 10 MG/5 ML UDC ONE (13:38)
[2024-01-08] MEDS ORDERED: ALUMINUM HYD/MAG/SIMETHICONE 30 ML UDC ONE ×2 (13:38→13:39)
[2024-01-08] MEDS: DICYCLOMINE HCL LIQUID 20 MG, ALUMINUM HYD/MAG/SIMETHICONE 30 ML, LIDOCAINE VISCOUS 2% ... PO ONE (13:50)
== END 2024-01-08 13:53 | disposition home or self-care (01) ==
LOC: MED 11:47
DX: R10.13 Epigastric pain (principal); I10 Essential (primary) hypertension; Z79.899 Other long term (current) drug therapy
CPT/HCPCS: 93005; 99283